=== PATIENT | female | born 1955 | race Two or more races ===

== ENCOUNTER 2023-09-16 02:21 | Inpatient (IN) | payer MEDICAID ==
[~2023-09-16] VITALS: Ht 157.5 cm; Wt 72.2 kg
[2023-09-16] VITALS (7 sets, daily range): BP systolic 120–125; BP diastolic 50–53; PULSE 80–113; RESP 16–20; TEMP 98.2–99.1; O2SAT 97–99
[~2023-09-16 02:21] MED LIST: METF-370 PO
[2023-09-16] MEDS: ACETAMINOPHEN 325 MG TAB PO ONE ×2 (02:45→11:23)
[2023-09-16] MEDS: SODIUM CHLORIDE 0.9% 1,000 ML IV ONE ×2 (02:47→05:59)
[2023-09-16 03:24] LABS: Basophils # (auto) 0 10 ^3/uL (0-0.2); Basophils % (auto) 0.2 % (0.0-2.0); Eosinophils # (auto) 0 10 ^3/uL (0-0.8); Hematocrit 33.7 % (36.0-46.0); Hemoglobin 11.2 g/dL (12.2-16.2); Lymphocytes # (auto) 0.6 10 ^3/uL (0.4-5.4); Mean Corpuscular Hgb Conc. 33.2 g/dL (32.0-36.0); Mean Corpuscular Volume 96.4 fL (80.0-100.0); Monocytes # (auto) 0.5 10 ^3/uL (0-1.3); Monocytes % (auto) 2.9 % (0.0-12.0); Neutrophils # (auto) 17.6 10 ^3/uL (1.6-8.6); Neutrophils % (auto) 93.9 % (37.0-80.0); Red Cell Distribution Width 13.2 % (11.8-14.3); White Blood Cell 18.7 10^3/uL (4.4-10.8)
[2023-09-16 03:38] LABS: Alanine Aminotransferase 13 U/L (7-40); Albumin 4.7 g/dL (3.2-4.8); Alkaline Phosphatase 113 U/L (46-116); Anion Gap 12 (5-15); Aspartate Aminotransferase 25 U/L (13-40); BUN/Creatinine Ratio 17.1 (10.0-20.0); Blood Urea Nitrogen 22 mg/dL (9-23); Calcium 9.4 mg/dL (8.7-10.4); Carbon Dioxide 18 mmol/L (20-30); Chloride 100 mmol/L (98-107); Glucose 201 mg/dL (74-106); Potassium 5.1 mmol/L (3.5-5.1); Sodium 130 mmol/L (136-145)
[2023-09-16 03:39] LABS: Bilirubin, Total 0.4 mg/dL (0.2-1.0); Total Protein 8.2 g/dL (5.7-8.2)
[2023-09-16] MEDS: NITROGLYCERIN 2% OINT 1GM PKG TD ONE (05:15)
[2023-09-16] MEDS: IOHEXOL 350 MG/ML 100ML IJ ONE (05:55)
[2023-09-16] MEDS: ENOXAPARIN SOD 80 MG/0.8ML SYRINGE SC ONE (05:55)
[2023-09-16] MEDS: ASPirin 81 mg TAB PO ONE (05:58)
[2023-09-16 08:03] LABS: Urine Bacteria None Seen /hpf (None Seen)
[2023-09-16 09:02] LABS: Urine Blood Negative /uL (Negative); Urine Clarity Clear (Clear); Urine Color Colorless (Yellow); Urine Protein, UAD Negative (Negative); Urine Specific Gravity 1.023 (1.001-1.035); Urine Urobilinogen Normal (Negative); Urine WBC 4 /hpf (0 - 5); Urine pH 5.5 (5.0-9.0)
[2023-09-16] MEDS ORDERED: MORPHINE SULFATE INJ 2 MG/ml SYRG IV PRN (09:15)
[2023-09-16] MEDS ORDERED: DOCUSATE SOD 100 MG CAP PO PRN (09:15)
[2023-09-16] MEDS ORDERED: ONDANSETRON HCL 4 MG/2 ML VIAL IV PRN (09:15)
[2023-09-16] MEDS ORDERED: cefTRIAXone 1GM/50ML D5W 50 ML IV ONE (09:15)
[2023-09-16] MEDS ORDERED: NITROGLYCERIN 0.4 MG SL TAB SL PRN (10:00)
[2023-09-16 10:37] LABS: Creatinine, Urine 12.41 mg/dL (30.0-125.0)
[2023-09-16] MEDS: SODIUM CHLORIDE 0.9% 1,000 ML IV SCH (10:38)
[2023-09-16] MEDS: cefTRIAXone 1GM/50ML D5W 50 ML IV ONE (10:39)
[2023-09-16] MEDS ORDERED: ENOXAPARIN SOD 40 MG/0.4 ML SYRINGE SC ONE (10:45)
[2023-09-16] MEDS ORDERED: DEXTROSE (50%) 50ML SYRG IV PRN (10:45)
[2023-09-16] MEDS ORDERED: PANTOPRAZOLE 40 MG/10 ML VIAL INJ IV ONE (10:45)
[2023-09-16] MEDS: InsuLIN REG 1unit/0.01ml Soln (100units/ml) SC SCH ×2 (11:14→23:52)
[2023-09-16 11:18] LABS: Amphetamine Screen, Urine Neg (NEGATIVE); Barbiturate Scree,Urine Neg (NEGATIVE); Benzodiazephine Screen, Urine Neg (NEGATIVE); Cocaine Screen, Urine Neg (NEGATIVE)
[2023-09-16 11:19] LABS: Cannabinoid Screen, Urine Neg (NEGATIVE); Opiate Scree,Urine Neg (NEGATIVE); Phencyclidine Screen, Urine Neg (NEGATIVE)
[2023-09-16] MEDS: PANTOPRAZOLE 40 MG TAB PO ONE (11:23)
[2023-09-16] MEDS: ACCU-CHEK COMFORT CURVE STRIP VI SCH (11:23)
[2023-09-16] MEDS: MAGNESIUM SULFATE 1GM/100ML 100 ML IV SCH (11:52)
[2023-09-16 11:57] LABS: Lactic Acid w/Reflex 2.1 mmol/L (0.4-2.0)
[2023-09-16] MEDS: SODIUM CHLORIDE 0.9% 1,500 ML IV ONE (12:00)
[2023-09-16] MEDS ORDERED: VANCOMYCIN PER PHARMACY 0 MG IV SCH (12:15)
[2023-09-16] MEDS: VANCOMYCIN 1GM/200ML 200 ML IV ONE (12:27)
[2023-09-16] MEDS: methylPREDNISolone SOD SUCC 125 MG/2 ML VL IV ONE (12:49)
[2023-09-16] MEDS: FAMOTIDINE (10MG/ML) 2ML VL IV ONE (12:49)
[2023-09-16] MEDS: diphenhdrAMINE HCL 50 MG/1 ML VL IV ONE (12:49)
[2023-09-16] MEDS: PIPERACILLIN-TAZOB 3.375GM 100 ML IV ONE (13:42)
[2023-09-16] MEDS ORDERED: GEMF-66 PO (22:44)
[2023-09-16] MEDS ORDERED: GLIP5TAB21 PO (22:44)
[2023-09-16] MEDS ORDERED: TRAM50TA2 PO (22:44)
[2023-09-16] MEDS ORDERED: PANT40TA57 PO (22:44)
[2023-09-16] MEDS ORDERED: SERT-206 PO (22:44)
[2023-09-16] MEDS ORDERED: METO1TAB9 PO (22:44)
[2023-09-16] MEDS ORDERED: ENAL1TAB48 PO (22:44)
[2023-09-16] MEDS ORDERED: ATOR20TA50 PO (22:44)
[2023-09-16] MEDS ORDERED: ASPI-325 PO (22:44)
[2023-09-16] MEDS: ACETAMINOPHEN 325 MG TAB PO PRN (23:48)
[2023-09-16] MEDS: METOPROLOL TARTRATE 25 MG TAB PO SCH (23:48)
[2023-09-17] VITALS (12 sets, daily range): BP systolic 111–160; BP diastolic 45–84; PULSE 73–113; RESP 15–24; TEMP 97.9–100.4; O2SAT 91–100
[2023-09-17] MEDS: PIPERACILLIN-TAZOB 3.375GM 100 ML IV SCH (00:28)
[2023-09-17] MEDS: PANTOPRAZOLE 40 MG TAB PO SCH (05:51)
[2023-09-17 07:15] LABS: Basophils # (auto) 0 10 ^3/uL (0-0.2); Basophils % (auto) 0.1 % (0.0-2.0); Eosinophils # (auto) 0 10 ^3/uL (0-0.8); Hematocrit 26.4 % (36.0-46.0); Hemoglobin 9.1 g/dL (12.2-16.2); Lymphocytes # (auto) 0.5 10 ^3/uL (0.4-5.4); Mean Corpuscular Hemoglobin 33.4 pg (28.0-32.0); Mean Corpuscular Hgb Conc. 34.3 g/dL (32.0-36.0); Mean Corpuscular Volume 97.3 fL (80.0-100.0); Monocytes # (auto) 0.6 10 ^3/uL (0-1.3); Monocytes % (auto) 5.2 % (0.0-12.0); Neutrophils # (auto) 9.7 10 ^3/uL (1.6-8.6); Neutrophils % (auto) 89.7 % (37.0-80.0); Red Blood Cells 2.71 10^6/uL (4.0-5.20); Red Cell Distribution Width 13.5 % (11.8-14.3); White Blood Cell 10.8 10^3/uL (4.4-10.8)
[2023-09-17 07:43] LABS: Alkaline Phosphatase 75 U/L (46-116); Blood Urea Nitrogen 16 mg/dL (9-23); Calcium 8.8 mg/dL (8.7-10.4); Glucose 130 mg/dL (74-106); Magnesium 1.9 mg/dL (1.6-2.6); Potassium 3.9 mmol/L (3.5-5.1)
[2023-09-17 07:44] LABS: Albumin 3.9 g/dL (3.2-4.8); Aspartate Aminotransferase 16 U/L (13-40); Bilirubin, Total 0.2 mg/dL (0.2-1.0); Total Protein 6.5 g/dL (5.7-8.2)
[2023-09-17 07:46] LABS: Anion Gap 10 (5-15); Carbon Dioxide 19 mmol/L (20-30)
[2023-09-17 07:50] LABS: Alanine Aminotransferase 9 U/L (7-40); Chloride 110 mmol/L (98-107); Sodium 139 mmol/L (136-145)
[2023-09-17] MEDS ORDERED: cefTRIAXone 1GM/50ML D5W 50 ML IV SCH ×2 (09:00)
[2023-09-17] MEDS: ENOXAPARIN SOD 40 MG/0.4 ML SYRINGE SC SCH (09:11)
[2023-09-17] MEDS ORDERED: PANTOPRAZOLE 40 MG/10 ML VIAL INJ IV SCH (10:00)
[2023-09-17] MEDS: IPRATROPIUM BROM 0.5 MG/2.5ML INH SOL ONE (16:35)
[2023-09-17] MEDS: LEVALBUTEROL HCL 1.25 MG/3 ML NEB ONE (16:35)
[2023-09-17] MEDS: HYDROcodone-ACET 5/325MG TAB PO PRN (16:43)
[2023-09-17] MEDS: LEVALBUTEROL HCL 1.25 MG/3 ML NEB NEB ONE (16:58)
[2023-09-17] MEDS: IPRATROPIUM BROM 0.5 MG/2.5ML INH SOL NEB ONE (16:58)
[2023-09-17] MEDS: IOHEXOL 350 MG/ML 100ML IJ ONE (17:25)
[2023-09-17] MEDS ORDERED: LEVALBUTEROL HCL 1.25 MG/3 ML NEB NEB PRN (21:40)
[2023-09-17] MEDS: METOPROLOL TARTRATE 25 MG TAB PO SCH (22:00)
[2023-09-17 22:37] LABS: Base Excess -5.1 mmol/L (-2.0-2.0)
[2023-09-18] VITALS (12 sets, daily range): BP systolic 116–162; BP diastolic 51–72; PULSE 75–101; RESP 16–19; TEMP 98.2–103; O2SAT 94–99
[2023-09-18 06:00] LABS: COVID19 ANTIGEN SOFIA FIA NEGATIVE (NEGATIVE)
[2023-09-18 06:00] LABS: Rapid Influenza A Negative (Negative); Rapid Influenza B Negative (Negative)
[2023-09-18 06:04] LABS: Calcium 8.8 mg/dL (8.7-10.4); Chloride 107 mmol/L (98-107); Potassium 3.6 mmol/L (3.5-5.1); Sodium 137 mmol/L (136-145)
[2023-09-18 06:05] LABS: Anion Gap 11 (5-15); Carbon Dioxide 19 mmol/L (20-30)
[2023-09-18 06:10] LABS: Blood Urea Nitrogen 12 mg/dL (9-23); Glucose 125 mg/dL (74-106)
[2023-09-18 06:51] LABS: Basophils # (auto) 0 10 ^3/uL (0-0.2); Eosinophils # (auto) 0 10 ^3/uL (0-0.8); Hemoglobin 8.6 g/dL (12.2-16.2); Lymphocytes # (auto) 0.9 10 ^3/uL (0.4-5.4); Lymphocytes % (auto) 9.5 % (10.0-50.0); Mean Corpuscular Hemoglobin 32.6 pg (28.0-32.0); Mean Corpuscular Hgb Conc. 34.4 g/dL (32.0-36.0); Mean Corpuscular Volume 94.9 fL (80.0-100.0); Monocytes # (auto) 0.6 10 ^3/uL (0-1.3); Monocytes % (auto) 5.9 % (0.0-12.0); Neutrophils # (auto) 8.2 10 ^3/uL (1.6-8.6); Neutrophils % (auto) 84.6 % (37.0-80.0); Red Blood Cells 2.64 10^6/uL (4.0-5.20); Red Cell Distribution Width 13.3 % (11.8-14.3); White Blood Cell 9.7 10^3/uL (4.4-10.8)
[2023-09-18] MEDS: FUROSEMIDE 20 MG/2 ML VIAL IV SCH (09:05)
[2023-09-18] MEDS: METOPROLOL SUCCINATE XL 50 MG TAB PO SCH (09:06)
[2023-09-18] MEDS ORDERED: LISI10TA34 PO (15:04)
[2023-09-18] MEDS ORDERED: GABA-1250 PO (15:04)
[2023-09-19] VITALS (11 sets, daily range): BP systolic 118–156; BP diastolic 69–74; PULSE 69–107; RESP 16–20; TEMP 97.6–98.7; O2SAT 94–99
[2023-09-19 06:41] LABS: Basophils # (auto) 0 10 ^3/uL (0-0.2); Eosinophils # (auto) 0 10 ^3/uL (0-0.8); Hematocrit 27.5 % (36.0-46.0); Hemoglobin 9.7 g/dL (12.2-16.2); Lymphocytes # (auto) 1.2 10 ^3/uL (0.4-5.4); Lymphocytes % (auto) 17.1 % (10.0-50.0); Mean Corpuscular Hemoglobin 32.4 pg (28.0-32.0); Mean Corpuscular Hgb Conc. 35.1 g/dL (32.0-36.0); Mean Corpuscular Volume 92.3 fL (80.0-100.0); Monocytes # (auto) 0.6 10 ^3/uL (0-1.3); Monocytes % (auto) 8.6 % (0.0-12.0); Neutrophils # (auto) 5.2 10 ^3/uL (1.6-8.6); Neutrophils % (auto) 74.3 % (37.0-80.0); Red Blood Cells 2.98 10^6/uL (4.0-5.20)
[2023-09-19 06:43] LABS: Anion Gap 12 (5-15); Calcium 9.2 mg/dL (8.7-10.4); Carbon Dioxide 24 mmol/L (20-30); Chloride 102 mmol/L (98-107); Sodium 138 mmol/L (136-145)
[2023-09-19 06:49] LABS: BUN/Creatinine Ratio 12.9 (10.0-20.0); Blood Urea Nitrogen 13 mg/dL (9-23); Glucose 112 mg/dL (74-106)
[2023-09-19] MEDS: POTASSIUM CHL 20 Meq TABLET PO ONE (08:31)
[2023-09-19] MEDS: cefTRIAXone 2GM/50ML D5W 50 ML IV SCH (09:02)
[2023-09-19] MEDS: LOSARTAN POTASSIUM 25 MG TAB PO SCH (22:14)
[2023-09-20] VITALS (8 sets, daily range): BP systolic 121–139; BP diastolic 59–78; PULSE 71–86; RESP 16–18; TEMP 97.8–98.3; O2SAT 95–99
[2023-09-20 07:30] LABS: Basophils # (auto) 0 10 ^3/uL (0-0.2); Basophils % (auto) 0.1 % (0.0-2.0); Eosinophils # (auto) 0 10 ^3/uL (0-0.8); Hematocrit 28.8 % (36.0-46.0); Hemoglobin 10.2 g/dL (12.2-16.2); Lymphocytes # (auto) 1.1 10 ^3/uL (0.4-5.4); Lymphocytes % (auto) 17.2 % (10.0-50.0); Mean Corpuscular Hemoglobin 32.3 pg (28.0-32.0); Mean Corpuscular Hgb Conc. 35.5 g/dL (32.0-36.0); Mean Corpuscular Volume 91.1 fL (80.0-100.0); Monocytes # (auto) 0.4 10 ^3/uL (0-1.3); Neutrophils # (auto) 4.7 10 ^3/uL (1.6-8.6); Neutrophils % (auto) 75.7 % (37.0-80.0); Red Blood Cells 3.17 10^6/uL (4.0-5.20); Red Cell Distribution Width 12.9 % (11.8-14.3); White Blood Cell 6.3 10^3/uL (4.4-10.8)
[2023-09-20 07:45] LABS: Anion Gap 9 (5-15); Carbon Dioxide 26 mmol/L (20-30); Chloride 103 mmol/L (98-107); Potassium 3.8 mmol/L (3.5-5.1); Sodium 138 mmol/L (136-145)
[2023-09-20 07:46] LABS: Calcium 9.2 mg/dL (8.7-10.4)
[2023-09-20 07:51] LABS: BUN/Creatinine Ratio 14.4 (10.0-20.0); Blood Urea Nitrogen 13 mg/dL (9-23); Glucose 134 mg/dL (74-106)
[2023-09-20] MEDS ORDERED: METO1TAB9 PO (13:34)
[2023-09-20] MEDS ORDERED: LEVO750T40 PO (13:34)
[2023-09-20] MEDS ORDERED: LOSA-533 PO (13:34)
== END 2023-09-20 18:21 | disposition home or self-care (01) | DRG 720 ==
LOC: ER 02:21 → OVERFLOW 09:55 → TELE 10:36 → TELE-CENTR 22:23
PROVIDERS: ADMIT Student in an Organized Health Care Education/Training Program; ATTEND Student in an Organized Health Care Education/Training Program
DX: A41.50 Gram-negative sepsis, unspecified (principal); J96.01 Acute respiratory failure with hypoxia; N17.0 Acute kidney failure with tubular necrosis; I50.33 Acute on chronic diastolic (congestive) heart failure; E87.1 Hypo-osmolality and hyponatremia; E11.40 Type 2 diabetes mellitus with diabetic neuropathy, unspecified; D64.9 Anemia, unspecified; I21.A1 Myocardial infarction type 2; Z20.822 Contact with and (suspected) exposure to COVID-19; N10 Acute pyelonephritis; E78.5 Hyperlipidemia, unspecified; K21.9 Gastro-esophageal reflux disease without esophagitis; F32.A Depression, unspecified; E66.9 Obesity, unspecified; E86.0 Dehydration; Z68.29 Body mass index [BMI] 29.0-29.9, adult; Z87.891 Personal history of nicotine dependence; Z88.1 Allergy status to other antibiotic agents; Z86.73 Personal history of transient ischemic attack (TIA), and cerebral infarction without residual deficits; I11.0 Hypertensive heart disease with heart failure
CPT/HCPCS: 36415; 36600; 70450; 71045; 71275; 74176; 80048; 80053; 80061; 80307; 81001; 82570; 82805; 82962; 83036; 83605; 83735; 83880; 84300; 84443; 84484; 85025; 85379; 87040; 87077; 87086; 87088; 87186; 87426; 87804; 93005; 93306; 93970; 94640; G0378; J1815; J2543; J3490